=== PATIENT | female | born 1960 | race Caucasian/White ===

== ENCOUNTER → 2018-03-25 12:05 | Outpatient (CLI) | payer OTHER, BC, SELFPAY ==
--- NOTE | 2018-03-25 | BRBX_PTH ---
PATIENT: LIBBY HICKEY LOC: [facility] U#:[id number] AGE/SX: 65/F ROOM: RE03/25/[address]: Dr. Keya Bowles MD : 1960 BED: DIS: SPEC #: [id number] RECD: 03/25/18 12:05 STATUS: SUMA CONDE #: [id number] SHUBHAM: 03/25/18 00:[address]: Keya Bowles DEPT: SURGICAL PATHOLOGY RECD BY: Rufus Turner ENTERED: 03/25/18 12:35 SP TYPE: BREAST BX OTHR DR: Dr. Nabeel Mahajan MD Tissues: Left breast, NOS Procedures: Surgery Specimen Level IV HEADER OPERATION: Ultrasound-guided left breast needle core biopsy PRE-OP DIAGNOSIS: Abnormal mammogram/ultrasound TISSUE SUBMITTED: Left breast needle core biopsy Ischemic time: 1 minute MICROSCOPIC DIAGNOSIS Left breast, ultrasound-guided needle core biopsy: Fragments of fatty benign breast tissue, no pathologic diagnosis. Negative for atypia or malignancy. See comment. ANITHA:shadia 03/26/18 COMMENT Correlation with clinical, radiologic findings and appropriate follow up are necessary. Rebiopsy is suggested if clinically indicated. MICROSCOPIC DESCRIPTION Slides are reviewed. GROSS DESCRIPTION Received is one container labeled with the patient's name and not further designated. The specimen consists of multiple elongated fragments of christina-yellow fibroadipose tissue that in aggregate measure 1.5 x 0.7 x 0.1 cm. The entire specimen is submitted in one cassette. / ANITHA:shadia 03/25/18 TC:4 CPT: 07269
== END ==
PROVIDERS: Visit Provider Surgery
DX: R92.8 Other abnormal and inconclusive findings on diagnostic imaging of breast (principal)
CPT/HCPCS: 88305

== ENCOUNTER → 2018-11-05 08:01 | Outpatient (CLI) | payer OTHER, BC, SELFPAY ==
--- NOTE | 2018-11-05 08:04 | RAD_ITS ---
CLINICAL HISTORY: Female, 58 years old. PROCEDURE: CONSENT: SEDATION: FLUOROSCOPY TIME (if supplied): (1:27) minutes/seconds Double contrast upper GI was done. The patient swallowed the barium without difficulty no evidence of obstruction there is a small sliding hiatus hernia with mild gastroesophageal reflux noted during. The stomach was then filled to the normal contour without mucosal abnormality. The duodenal bulb and weep are within normal limits no evidence of peptic ulcer disease or deformity. The proximal small bowel is unremarkable. RAD/Upper GI Series Only IMPRESSION: Small sliding hiatal hernia with mild gastroesophageal. Electronically Signed: Marquise Rizzo, at 15:42 EST Tel , Service support ,
== END ==
PROVIDERS: Family Provider Family Medicine; PCP Family Medicine; Referring Provider Family Medicine; Visit Provider Family Medicine
DX: R13.10 Dysphagia, unspecified (principal)
CPT/HCPCS: 74246

== ENCOUNTER 2019-04-06 20:55 | Emergency (ER) | payer OTHER, BC, SELFPAY ==
[2019-04-06 20:56] VITALS: BP 165/93; PULSE 84; RESP 18; TEMP 36.4; O2SAT 99; BMI 36.6
--- NOTE | 2019-04-06 21:27 | US_ITS ---
STUDY: VENOUS DOPPLER ULTRASOUND - RIGHT LOWER EXTREMITY REASON FOR EXAM: Female, 58 years old. Knee pain. TECHNIQUE: Ultrasound evaluation of the deep vein system to include ordonez-scale imaging and compression was performed. Ordonez-scale imaging and Doppler sonographic evaluation, including duplex spectral analysis and qualitative color flow sonography, was performed. COMPARISON: None. FINDINGS: Common Femoral Vein: Normal compression, spontaneity and augmentation. Normal color Doppler. Common Femoral Vein/Greater Saphenous Junction: Normal compression and spontaneity. Normal color Doppler. Femoral Proximal: Normal compression and spontaneity. Normal color Doppler. Femoral Middle: Normal compression, spontaneity and augmentation. Normal color Doppler. Femoral Distal: Normal compression and spontaneity. Normal color Doppler. Popliteal Vein: Normal compression, spontaneity and augmentation. Normal color Doppler. Posterior Tibial Vein: Normal compression. Peroneal Vein: Normal compression. US/Venous Duplex Imag/Limited/Uni IMPRESSION: No demonstrated deep vein thrombosis. Electronically Signed: Nolvia Mendez MD at 22:08 EDT Tel , Service support ,
--- NOTE | 2019-04-06 21:30 | RAD_ITS ---
STUDY: X-RAY - RIGHT KNEE REASON FOR EXAM: Female, 58 years old. Severe right knee pain for 2 to 3 days. TECHNIQUE: 3 view(s) of the knee. COMPARISON: None. FINDINGS: Normal visualized distal femur. Normal visualized proximal tibia and fibula. Normal proximal tibiofibular articulation. There is no acute fracture, dislocation or destructive osseous pathology. There is minimal degenerative arthrosis of the medial femorotibial compartment. Normal lateral femorotibial compartment. There is moderate degenerative arthrosis of the patellofemoral articulation. There is no demonstrated joint effusion. The soft tissue structures are unremarkable. RAD/Knee 4 or More Views IMPRESSION: Arthrosis of the right knee. Electronically Signed: Markel Armstrong DO at 21:46 EDT Tel [phone], Service support ,
--- NOTE | 2019-04-06 22:45 | ED.VISSUMM ---
- ER Visit Summary Date of Service: 04/06/19 Chief Complaint: [Right leg pain] History of Present Illness: The patient is a 58 F [presents the emergency room with pain in the right leg dysarthria 4 days ago initially behind her right knee. Patient states she was doing a lot of gardening today and eventually developed a severe pain in the right knee and now cannot bear weight secondary to pain. Patient has pain down into her calf. She denies recent travel or surgery. She denies any falls or direct trauma. She does have a history of hypertension. He denies chest pain or shortness of breath.] Physical Examination: [HEENT-PERRLA, EOMI. Cranial nerves II through XII grossly intact. TMs clear. Mucous membranes moist. No adenopathy. Cardiovascular-regular rate and rhythm without murmur or ectopy Lungs-clear to auscultation, chest wall stable without crepitus or subcu emphysema Abdomen-normoactive bowel sounds, soft, nontender, no rebound or rigidity, no peritoneal signs. Extremities-intact ?4, normal range of motion, normal pulses, atraumatic. Right knee-patient has tenderness diffusely behind the right knee especially the tendons of the hamstring. Patient has tenderness over the calf with a positive Homans sign. There are no ropes or cords palpated. She has pain with flexion extension of the knee therefore ligamentous exam difficult as patient does not tolerate well.] Test Results: [Venous Doppler of the right leg obtained was negative for DVT. Patient also had right knee x-rays that showed arthrosis.] Emergency Department Course and Treatment: [Patient was given knee immobilizer and crutches. Patient was given a prescription for [place] for pain. Patient will be given referral to orthopedics for follow-up] Treatment Plan: [Follow-up with orthopedics and given a prescription for Percocet. Patient to follow-up with orthopedics within next 3 to 5 days.] Disposition: [Discharged home in stable condition] Impression: [Right leg pain-etiology uncertain] This note was generated with WiserTogetheration software. It may contain incorrect words, spelling, and punctuation that were not noted in review of the chart prior to signing ED Disposition - Plan for ED Patient: Referrals: Nabeel Mahajan MD [Primary Care Provider] -
--- NOTE | 2019-04-06 22:47 | ED.DEP ---
ED Disposition - Plan for ED Patient: Instructions: ED Knee Pain [facility] Prescriptions: Oxycodone HCl/Acetaminophen [Percocet 5/325] 1 tab PO Q6H PRN PRN 3 Days #12 tab PRN Reason: Pain Referrals: Nabeel Mahajan MD [Primary Care Provider] - Andrew Nance DO [STAFF PHYSICIAN] - 3-5 Days
[2019-04-06] MEDS: oxyCODONE 5 MG Tablet PO (23:01)
[2019-04-06 23:13] VITALS: BP 144/71; PULSE 65; RESP 17; O2SAT 99
== END 2019-04-06 23:14 | disposition home or self-care (01) ==
LOC: ED 22:04
PROVIDERS: Emergency Provider Emergency Medicine; Family Provider Family Medicine; PCP Family Medicine
DX: M79.661 Pain in right lower leg (principal); I10 Essential (primary) hypertension; Z79.899 Other long term (current) drug therapy
CPT/HCPCS: 73564; 93971; 99284

== ENCOUNTER → 2019-10-12 13:10 | Outpatient (CLI) | payer OTHER, BC, SELFPAY ==
--- NOTE | 2019-10-12 13:13 | VDLE_ITS ---
Reason For Study: Pain in RLE RIGHT GSV is normal. CFV is compressible, spontaneous, phasic, competent and demonstrates normal augmentation. FV is compressible, spontaneous, phasic, competent and demonstrates normal augmentation. POP V is compressible, spontaneous, phasic, competent and demonstrates normal augmentation. T/P Trunk is compressible. PTV is compressible. RT PerV is compressible. Procedure Exam performed in department. A preliminary report was called and/or faxed to [facility]. Interpretation Summary Deep veins of the right lower extremity are patent and compressible segmentally. There is no evidence of right lower extremity deep vein thrombosis. Valvular competence appears intact within the proximal deep venous system on the right . The right great saphenous vein appears patent and compressible segmentally. Ordering Physician: Carlos Montez Referring Physician: Nabeel Mahajan Performed By: Delmis Babb RVT
== END ==
PROVIDERS: Family Provider Family Medicine; PCP Family Medicine; Referring Provider Physician Assistant Surgical; Visit Provider Physician Assistant Surgical
DX: M79.661 Pain in right lower leg (principal)
CPT/HCPCS: 93971

== ENCOUNTER → 2020-01-05 11:43 | Outpatient (CLI) | payer OTHER, BC, SELFPAY ==
--- NOTE | 2020-01-06 16:01 | STRESSREP ---
Stress Test Report Date: 01/05/2020 Procedure: Exercise stress test Indications: Atypical chest pain Consent: Per the patient Procedure: The patient exercised on a David protocol for 7 minutes achieving a peak heart rate of 144 bpm (88 % predicted maximal heart rate) with a peak blood pressure 164/78 mmHg and a peak MET capacity of 8.5 METs. The baseline ECG demonstrated normal sinus rhythm. The peak exercise ECG demonstrated sinus tachycardia with no significant ST-T changes. EKG during recovery revealed no significant ischemic changes [There were no significant cardiac dysrhythmias pretest, during exercise, or recovery]. Occasional PVCs noted. The functional capacity was considered normal for age. There was [no complaint of chest discomfort during exercise or recovery]. The examination was discontinued secondary to dyspnea, knee discomfort. Impression: 1. Technically adequate (percent predicted maximal heart rate greater than 85%) exercise tolerance test 2. Stress test is negative for exercise-induced EKG changes of ischemia 3. The test test is negative for exercise-induced chest pain 4. Functional capacity is normal for age This note was generated with TellApartation software. It may contain incorrect words, spelling, and punctuation that were not noted in checking the note before signing.
== END ==
PROVIDERS: PCP Family Medicine; Referring Provider Family Medicine; Visit Provider Family Medicine
DX: R07.89 Other chest pain (principal)
CPT/HCPCS: 93017

== ENCOUNTER → 2020-07-02 07:25 | Outpatient (CLI) | payer OTHER, BC, SELFPAY ==
--- NOTE | 2020-07-02 | LES_PTH ---
PATIENT: LIBBY HICKEY LOC: [facility] U#:[id number] AGE/SX: 65/F ROOM: RE07/02/[address]: Dr. Elvis Ratliff MD : 1960 BED: DIS: SPEC #: [id number] RECD: 07/02/20 18:03 STATUS: SUMA FULLERJennifer #: [id number] SHUBHAM: 07/02/20 00:[address]: Elvis Ratliff DEPT: SURGICAL PATHOLOGY RECD BY: Landon Holt ENTERED: 07/03/20 08:09 SP TYPE: Lesion OTHR DR: Dr. Nabeel Mahajan MD Tissues: Skin of lip, NOS Procedures: Surgery Specimen Level IV HEADER OPERATION: Excision lesion of lip PRE-OP DIAGNOSIS: Benign neoplasm of oral cavity TISSUE SUBMITTED: Right corner inside bottom lip MICROSCOPIC DIAGNOSIS Right corner inner lip, biopsy: Consistent with fibroma. AM:shadia 07/04/20 COMMENT Case has been reviewed in consultation with Dr. Dixon who concurs with the above diagnosis. IDC:ANITHA MICROSCOPIC DESCRIPTION Slides are reviewed. GROSS DESCRIPTION Received in fixative is one container labeled with the patient's name and designated right corner bottom lip inside. The specimen consists of a piece of christina mucosal tissue measuring 0.5 x 0.5 x 0.3 cm. The specimen is inked and submitted entirely in one cassette. / ANITHA:shadia 07/03/20 TC:5 CPT: 29809
== END ==
PROVIDERS: PCP Family Medicine; Referring Provider Otolaryngology; Visit Provider Otolaryngology
DX: D10.30 Benign neoplasm of unspecified part of mouth (principal)
CPT/HCPCS: 88305

== ENCOUNTER 2024-01-21 10:47 | Day surgery (SDC) | payer OTHER, SELFPAY ==
--- NOTE | 2024-01-15 08:25 | EKG12_ITS ---
Test Reason : PRE OP Blood Pressure : / mmHG Vent. Rate : 084 BPM Atrial Rate : 084 BPM P-R Int : 190 ms QRS Dur : 088 ms QT Int : 394 ms P-R-T Axes : 053 -02 048 degrees QTc Int : 465 ms Normal sinus rhythm Low voltage QRS Borderline ECG Confirmed by Andrew Varghese ([id number]), market editor YEN AGUAYO ([id number]) on 01/18/2024 1:59:36 PM Referred By: Carolina Brooks Confirmed By:Andrew Varghese
[2024-01-15 09:36] LABS: Hematocrit 43.9 % (37-47); Hemoglobin 14.2 g/dL (12.0-15.0); Mean Corp Hgb Conc 32.3 g/dL (32-36); Mean Corpuscular Hgb 30.1 pg (27.0-32.0); Mean Platelet Vol. 9.8 fl (6.2-12.0); Platelet Count 197 K/mm3 (150-450); RBC Distribution Width CV 13.2 % (11.6-14.6); RBC Distribution Width SD 45.1 fl (35.1-43.9); Red Blood Count 4.72 M/mm3 (4.2-5.4)
[2024-01-15 09:58] LABS: Anion Gap 5 (5-15); BUN 20 mg/dL (7-18); BUN/Creat Ratio 20.8 RATIO (10-20); Calcium,Total 8.8 mg/dL (8.5-10.1); Chloride 105 mmol/L (98-107); Creatinine, Serum 0.96 mg/dL (0.55-1.02); EST Glomerular Filtration Rate 63 mL/min (>60); Est Glom Filt Rate - Afr Amer 76 mL/min (>60); Glucose 122 mg/dL (74-106); Potassium 3.7 mmol/L (3.5-5.1); Sodium Level 140 mmol/L (136-145)
--- NOTE | 2024-01-20 08:20 | PCM.HP.BLA ---
History and Physical Date of Admission: 01/21/24 Pre-Op History and Physical ? HPI: The patient is a 63 year old female presenting for pre-operative visit. She is scheduled for Hysteroscopy D&C and polypectomy with symphion , for PMB, Endometrial polyps on 01/21/24. Procedure discussed along with risks, benefits and complications. Other alternatives discussed for management. Consent form signed? Yes. ? ? PAST MEDICAL HISTORY PAST MEDICAL HISTORY Diagnosis Date ? Adjustment disorder with mixed anxiety and depressed mood 01/20/2014 ? Arthritis of both knees 06/19/2019 ? Seeing [facility] ? Arthritis of left hip 09/10/2016 ? Benign mole 11/10/2018 ? mole in groin frozen off Dr Stephenson ? Calculus of gallbladder without cholecystitis 07/21/2017 ? Seen on US during hospital stay 06/2017 for salmonella gastroenteritis infection. ? Carpal tunnel syndrome 06/23/2006 ? Right s/p repair ? Chronic pain of both knees 05/24/2019 ? Elevated hemoglobin A1c 03/24/2018 ? Essential hypertension, benign 06/23/2006 ? Essential tremor 10/09/2023 ? Fibromyalgia 11/24/2017 ? Per ortho consult 11/24/2017 ? Gastroesophageal reflux disease 12/09/2018 ? Added automatically from request for surgery [id number] ? Generalized anxiety disorder 09/10/2016 ? Generalized anxiety disorder ? ? Hiatal hernia 12/09/2018 ? Added automatically from request for surgery [id number] ? Hypersomnia due to medical condition 10/09/2023 ? Seeing Dr. Hayden ? Hypertonicity of bladder ? ? Obesity, Class II, BMI 35-39.9 06/19/2015 ? ALEKSANDRA (obstructive sleep apnea) 03/26/2011 ? Sleep study 6- Dr Viveros. She was reluctant to begin CPAP ? Overactive bladder 06/23/2006 ? Pain of both hip joints 09/10/2016 ? Periodic limb movement disorder (PLMD) 10/09/2023 ? Seeing Dr. Hayden. ? Primary localized osteoarthrosis, other specified sites ? ? Rosacea 06/29/2012 ? S/P total knee arthroplasty, bilateral 09/24/2020 ? Status post total knee replacement, bilateral 09/03/2020 ? Symptomatic menopausal or female climacteric states 12/17/2012 ? Urge incontinence ? ? Vertigo 02/16/2015 ? Seen by ENT in past. Symptoms intermittent since about ? Well adult exam 12/24/2016 ? Last done 10/09/2023 ? ? PAST SURGICAL HISTORY PAST SURGICAL HISTORY Procedure Laterality Date ? ARTHRP KNE CONDYLE&PLATU MEDIAL&LAT COMPARTMENTS Bilateral 09/03/2020 ? CARPAL TUNNEL Right 1997 ? COLONOSCOPY FLX DX W/COLLJ SPEC WHEN PFRMD ? 08/12/2013 ? Colonoscopy, repeat 10 yrs ? DILATION & CURETTAGE DX&/THER NONOBSTETRIC ? ? ? Dilation & curettage ? ESOPHAGOGASTRODUODENOSCOPY TRANSORAL DIAGNOSTIC ? 12/27/2018 ? EGD ? FECAL OCCULT BLOOD TEST ? 10/25/2018 ? negative ? PAST SURGICAL HISTORY OF ? 06/1989 ? STRESS ECG TREADMILL ? 01/05/2020 ? Negative ? ? ? CURRENT MEDICATIONS Current Outpatient Medications Medication Sig Dispense Refill ? DULoxetine (CYMBALTA) 60 mg capsule Take 1 capsule by mouth two times a day. 180 capsule 1 ? buPROPion SR (WELLBUTRIN SR) 150 mg 12 hr tablet Take 1 tablet by mouth two times a day. Take one a day for 14 days then go to taking 1 twice a day. 180 tablet 1 ? hydroCHLOROthiazide 25 mg tablet Take 1 tablet by mouth once daily. 90 tablet 1 ? pantoprazole DR (PROTONIX) 40 mg tablet Take one tab every other day by mouth 45 tablet 1 ? solifenacin 10 mg tablet Take 1 tablet by mouth once daily. 30 tablet 5 ? losartan (COZAAR) 100 mg tablet Take 1 tablet by mouth once daily. 90 tablet 1 ? ibuprofen (MOTRIN) 800 mg tablet Take 1 tablet by mouth every 8 hours as needed for pain. Take with food. 90 tablet 1 ? Clindamycin-Benzoyl Peroxide 1.2 %(1 % base) -5 % gel APPLY ONCE DAILY AT NIGHT TO ALL AREAS OF BUMPS, WILL BLEACH CLOTHES UNTIL DRY ? ? ? CPAP/BIPAP/OTHER AutoPAP 5-15 cmH2O with humidification. Please fit with an under the nose nasal mask. 1 Each 0 ? glucosamine/msm/chondroitin A (PGEQJTLWUXR-CACGHF-XAU ORAL) Take by mouth. ? ? ? Kwuvg-4-ZHX-EPA-Fish Oil 1,200 (144-216) mg cap Take by mouth once daily. ? ? ? MULTIVITAMIN ORAL Take by mouth. ? ? ? gabapentin (NEURONTIN) 400 mg capsule Take 1 capsule by mouth twice daily for 180 days. Take one tab by mouth three times a day. (Patient taking differently: Take 400 mg by mouth once daily. Take one tab by mouth daily decreased x2 wks prior) 180 capsule 1 ? armodafinil (NUVIGIL) 250 mg tab Take 1/2 tablet in the AM. If still feeling sleepy, can increase to 1 tablet. 90 tablet 1 ? No current facility-administered medications for this visit. ? ? ALLERGIES: Codeine ? PERSONAL HISTORY: SOCIAL HISTORY Social History ? Tobacco Use ? Smoking status: Never ? Smokeless tobacco: Never Vaping Use ? Vaping Use: Never used Substance Use Topics ? Alcohol use: Yes ? ? Comment: socially ? Drug use: No ? FAMILY HISTORY: FAMILY HISTORY FAMILY HISTORY Problem Relation Age of Onset ? Breast Cancer Mother 87 ? Hypertension Father ? ? Prostate Cancer Father ? ? Hypertension Paternal Grandmother ? ? Coronary Artery Disease Paternal Grandfather ? ? ? REVIEW OF SYMPTOMS: negative except as noted above PHYSICAL EXAMINATION: ? VITALS: Blood pressure 120/78, weight 220 lb (99.8 kg), last menstrual period 05/14/2015. ? GENERAL: The patient is well nourished, well hydrated in no acute distress. , The patient is oriented to time, place, and person. NECK: full range of motion LUNGS: Clear to auscultation bilaterally. no wheezes, rhonchi or rales HEART: Regular rate and rhythm, Normal heart sounds, and No murmurs or gallops ? ? IMPRESSION: 63yo with PMB and Endometrial polyps ? PLAN: Hysteroscopy, D&C, Polypectomy with Symphion ? Pt has been counseled on risks/benefits and alternatives of surgery including but not limited to anesthesia, bleeding, infection, uterine perforation with subsequent injury to pelvic structures including bowel, bladder, ureters and vessels. Pt wishes to proceed with surgery at this time. ? Pre and post op instructions reviewed ? I have reviewed and updated past medical and surgical history, medications and allergies Carolina Brooks MD ?9:17 AM Office Visit on 01/12/2024 Office Visit on 01/12/2024 Note shared with patient
[2024-01-21] VITALS (8 sets, daily range): BP systolic 105–148; BP diastolic 54–84; PULSE 71–78; RESP 16–18; TEMP 36.1–36.3; O2SAT 92–98; BMI 38.2
[2024-01-21] MEDS: Lactated Ringers 1,000 ML 15 ML IV (11:15)
--- NOTE | 2024-01-21 12:16 | OP.PCM_ITS ---
Report of Operation Date of Procedure: 01/21/24 Pre-Operative Diagnosis: PMB, endometrial polyps Post-Operative Diagnosis: same Surgery/Procedure Performed:: Hysteroscopy, D&C Surgeon: Carolina Brooks abattoir supervisor: None (Barbara Manzo MS3) Type of Anesthesia: MAC
--- NOTE | 2024-01-21 12:16 | DCINST_ITS ---
Discharge Instructions Diet Discharge Diet: No restrictions Activity May resume sexual activity in: 1 week Dressing / Incision Call your doctor if you observe: Fever of 101 or Higher, Inability to urinate, Using more than 1 pad per hour and Uncontrolled pain Follow Up Care Please Follow Up With: Carolina Brooks MD When: 1-2 weeks post OP if you need an appointment please call [phone] Test Results: Test results from this visit will be discussed in further detail at your follow- up appointment, if applicable. Discharge Plan Admission Attending Provider: Carolina Brooks Primary Care Provider: Nabeel Mahajan Discharge Orders/Prescriptions Prescriptions: No Action gabapentin 400 mg capsule 400 mg PO Q12H Patient Comments: Take one tab by mouth three times a day. solifenacin 5 mg tablet 10 mg PO DAILY Patient Comments: Take 1 tablet by mouth once daily. losartan 100 MG tablet 100 mg PO DAILY Patient Comments: hydrochlorothiazide 25 MG tablet 25 mg PO DAILY duloxetine 60 MG capsule,delayed release(DR/EC) 60 mg PO BID pantoprazole 40 mg tablet,delayed release (DR/EC) 40 mg PO Q3D bupropion HCl 150 mg tablet sustained-release 12 hr 150 mg PO Q12H Patient Comments: TAKE 1 TABLET BY MOUTH ONCE DAILY FOR 14 DAYS, then increase to 1 TABLET TWICE DAILY thereafter multivitamin [Daily Multi-Vitamin] Tablet 1 tab PO DAILY Slow Release Iron 160 mg (50 mg iron) tablet extended release 160 mg PO DAILY [place]-3 350 mg-235 mg- 90 mg-597 mg capsule,delayed release(DR/EC) 2 cap PO DAILY Foltrate 0.5-1 mg tablet 1 tab PO DAILY cholecalciferol (vitamin D3) [D3-2000] 50 mcg (2,000 unit) capsule 50 mcg PO DAILY Referrals / Follow Up: Nabeel Mahajan MD [Primary Care Provider] - Disposition Disposition (needs filled in before D/C Order can be placed): Home, Self Care
--- NOTE | 2024-01-21 12:16 | PCM.OPRPT ---
Report of Operation Date of Procedure: 01/21/24 Pre-Operative Diagnosis: PMB, endometrial polyps Post-Operative Diagnosis: same Surgery/Procedure Performed:: Hysteroscopy, D&C Description of Surgical Findings:: Two small endometrial polyps noted. Surgeon: Carolina Brooks deboner: None (Barbara MontalvoKinney MS3) Type of Anesthesia: MAC Specimen's removed: endometrial curettings and endometrial polyp Estimated Blood Loss (mL): <5 Fluids Replaced: 500 Description of Procedure: Informed consent was obtained the patient was taken the operating room she was placed in supine position. She was given anesthesia. She was then placed in the [facility] where she was prepped and draped in the normal sterile fashion. At this time the weighted speculum was placed in the posterior fornix of vagina. Single-tooth tenaculum was used to gently grasp the anterior lip the cervix. At this time the uterine cavity was sounded to approximately 8cm. Gentle dilatation was performed once adequate dilatation of the cervix was achieved the hysteroscope using normal saline as a distention medium was placed. Tubal ostia visualized. Two small endometrial polyps noted- one at right tubal ostia and one at fundal aspect. Symphion resecting device used to obtain endometrial curettings and to perform polypectomy. Tissue will be sent to pathology for evaluation. Tenaculum removed. Good hemostasis. Instrument, lap count correct x 2. Vaginal Sweep was negative. fluid deficit 450 cc Grafts/Implants Used: none Procedure Start Time: 12:25 Procedure Stop Time: 12:30 Complications none Admit VTE Documentation VTE Present on Admission: Yes VTE Mechan Device Prophylaxis: SCD's VTE Pharm Prophylaxis ordered?: No Reason prophylaxis not ordered:: Procedure Not Indicated
--- NOTE | 2024-01-21 12:45 | EMB_PTH ---
PATHOLOGY RESULTS PATIENT: LIBBY HICKEY LOC: [facility] U#:[id number] AGE/SX: 63/F ROOM: RE01/21/[address]: Dr. Carolina Brooks MD : 1960 BED: DIS: 01/21/2024 SPEC #: [id number] RECD: 01/22/24 07:15 STATUS: SUMA CONDE #: [id number] SHUBHAM: 01/21/24 12:[address]: Carolina Brooks DEPT: SURGICAL PATHOLOGY RECD BY: Mendy Ricks ENTERED: 01/22/24 07:15 SP TYPE: ENDOM BX/C OTHR DR: Dr. Nabeel Mahajan MD Tissues: Endometrium, NOS Procedures: Surgery Specimen Level IV HEADER OPERATION: Hysteroscopy, D&C, polypectomy, Symphion PRE-OP DIAGNOSIS: PMB and Endometrial polyps TISSUE SUBMITTED: Endometrial Curettings and polyp MICROSCOPIC DIAGNOSIS Endometrial polyp and Curettings; Polypoid fragments of disordered proliferative endometrium with focal glandular breakdown. Fragments of benign myometrium. KARSON/ 01/25/2024 COMMENT May represent focal simple hyperplasia with out atypia. Case has been reviewed in consultation with Dr. Dixon who concurs with the above diagnosis. IDC:ANITHA MICROSCOPIC DESCRIPTION Slides are reviewed. GROSS DESCRIPTION Received in fixative is one container labeled with the patient's name and designated Endometrial Curettings and polyp. The specimen consists of multiple irregular fragments of light christina soft tissue that in aggregate measure 2.5 x 1.0 x 0.2 cm. The specimen is totally submitted in one cassette. ANITHA/ 01/22/24 TC:5 CPT: 81623
== END 2024-01-21 14:02 | disposition home or self-care (01) ==
LOC: SDC 10:48 → AC 10:48
PROVIDERS: PCP Family Medicine; Referring Provider Obstetrics & Gynecology; Visit Provider Obstetrics & Gynecology
PROC: 0UB98ZZ Excision of Uterus, Via Natural or Artificial Opening Endoscopic (ICD-10-PCS; CPT 58558; principal; 2024-01-21 12:30)
DX: N84.0 Polyp of corpus uteri (principal); F41.1 Generalized anxiety disorder; N95.0 Postmenopausal bleeding; I10 Essential (primary) hypertension; K21.9 Gastro-esophageal reflux disease without esophagitis; Z92.89 Personal history of other medical treatment; E61.1 Iron deficiency; Z96.653 Presence of artificial knee joint, bilateral
CPT/HCPCS: 58558; 00952; 80048; 85027; 88305; 93005; J7120; J2405

== ENCOUNTER → 2024-12-13 | Outpatient (CLI) | payer OTHER, SELFPAY ==
--- NOTE | 2024-12-13 11:57 | CT_ITS ---
PROCEDURE: EXTREMITY UPPER WITHOUT CONTRA REASON FOR EXAM: Continued wrist pain following a recent fall. TECHNIQUE: CT scan of the right wrist was obtained without intravenous contrast. Axial, coronal and sagittal imaging was performed. 3D reconstruction was obtained as well. COMPARISON: None. FINDINGS: Bones: Nondisplaced fracture along the volar aspect of the trapezium. Joints: Joint space(s) preserved. No subluxation or dislocation. Soft Tissues: Soft tissue swelling. CT/Extremity Upper without Contra IMPRESSION: Nondisplaced fracture at the base of the trapezium. Soft tissue swelling. One or more dose reduction techniques were used (e.g., Automated exposure contr ol, adjustment of the mA and/or kV according to patient size, use of iterative reconstruction technique). Reading Location: [place] [id number]
== END | disposition home or self-care (01) ==
LOC: CT 11:54
PROVIDERS: PCP Family Medicine; Referring Provider Orthopaedic Surgery Sports Medicine; Visit Provider Orthopaedic Surgery Sports Medicine
DX: S62.001A Unspecified fracture of navicular [scaphoid] bone of right wrist, initial encounter for closed fracture (principal); M25.531 Pain in right wrist; X58.XXXA Exposure to other specified factors, initial encounter
CPT/HCPCS: 73200